=== PATIENT | female | born 1985 | race Caucasian/White ===

== ENCOUNTER 2022-05-29 09:47 | Inpatient (IN) ==
[2022-05-29] MEDS ORDERED: CARBOPROST TROMETHAMINE 250 MCG/ML AMP IM PRN (09:56)
[2022-05-29] MEDS ORDERED: ceFAZolin 3,000 MG in SYRINGE 1 EACH IV ONE (09:56)
[2022-05-29] MEDS ORDERED: TRANEXAMIC ACID 1,000 MG in SODIUM CHLORIDE 0.9% 100 ML IV PRN (09:56)
[2022-05-29] MEDS ORDERED: miSOPROStoL 200 MCG TABLET RECTAL PRN (09:56)
[2022-05-29] MEDS ORDERED: METHYLERGONOVINE 0.2 MG/1 ML AMP IM PRN (09:56)
[2022-05-29] MEDS ORDERED: OXYTOCIN/LR 20 UNIT/1,000 ML BAG IV ONE ×2 (09:56→17:12)
[2022-05-29] MEDS ORDERED: CITRIC ACID/SODIUM CITRATE 30 ML UDCUP PO ONE (09:56)
[2022-05-29] MEDS ORDERED: FAMOTIDINE 20 MG/2 ML VIAL IV ONE (09:56)
[2022-05-29] MEDS ORDERED: OXYTOCIN 10 UNIT/ML VIAL IM ONE (09:57)
[2022-05-29] MEDS ORDERED: OXYTOCIN/LR 30 UNIT/1,000 ML BAG IV ONE (09:57)
[2022-05-29] MEDS ORDERED: LACTATED RINGERS 1,000 ML IV SCH (10:00)
[2022-05-29 10:31] LABS: Basophils % 0.2 % (0.0-0.8); Eosinophils % 0.3 % (0.00-10.9); Hematocrit 32.8 VOL% (35.7-47.0); Hemoglobin 10.6 GM/DL (12.0-16.0); Immature Granulocytes % 0.7 %; Immature Granulocytes Absolute 0.08 #; Lymphocytes # 1.6 10*3/uL (1.4-4.0); Lymphocytes % 15.1 % (21.3-54.2); Mean Corpuscular HGB Conc 32.3 GM/DL (32-36); Mean Corpuscular Volume 93.4 FL (87-102); Mean Platelet Volume 9.1 FL (9.6-12.0); Monocytes # 0.8 10*3/uL (0.11-0.8); Monocytes % 7.5 % (1.7-12.7); Neutrophils % 76.2 % (38.7-73.9); Platelet Count 265 T/CUMM (130-400); Red Blood Count 3.51 MC/CUMM (3.8-5.5); Red Cell Distribution Width 12.9 % (9.3-17.3); White Blood Count 10.9 T/CUMM (4-12)
[2022-05-29] MEDS ORDERED: buprenorphine HCL 0.3 MG/ML VIAL ONE (12:24)
[2022-05-29] MEDS ORDERED: ONDANSETRON 4 MG/2 ML VIAL ONE (12:24)
[2022-05-29] MEDS ORDERED: BUPIVACAINE SPINAL 0.75% 2 ML AMP SPINAL ONE (12:24)
[2022-05-29] MEDS ORDERED: LIDOCAINE 2% 5 ML VIAL ONE (12:24)
[2022-05-29] MEDS ORDERED: CARBOPROST TROMETHAMINE 250 MCG/ML AMP IM ONE (15:16)
[2022-05-29] MEDS ORDERED: miSOPROStoL 200 MCG TABLET ONE (15:16)
[2022-05-29] MEDS ORDERED: METHYLERGONOVINE 0.2 MG/1 ML AMP ONE (15:16)
[2022-05-29] MEDS ORDERED: ACETAMINOPHEN INJ 1,000 MG/100 ML VIAL IV ONE (15:32)
[2022-05-29] MEDS ORDERED: KETOROLAC 30 MG/1 ML VIAL ONE (15:33)
[2022-05-29] MEDS ORDERED: DEXAMETHASONE 4 MG/1 ML VIAL ONE (15:34)
[2022-05-29] MEDS ORDERED: LACTATED RINGERS 1,000 ML IV ONE (16:13)
[2022-05-29] MEDS ORDERED: propofoL 200 MG/20 ML VIAL IV ONE ×3 (16:13→16:32)
[2022-05-29] MEDS ORDERED: SUCCINYLCHOLINE 200 MG/10 ML VIAL ONE (16:13)
[2022-05-29] MEDS ORDERED: fentaNYL 100 MCG/2 ML VIAL ONE (16:29)
[2022-05-29 16:32] LABS: Bilirubin,Urine Negative (Negative); Blood, Urine Negative (Negative); Glucose,Urine (UA) Negative (Negative); Ketones,Urine 20 mg/dL (Negative); Mucus,Urine Few /LPF (Occasional); Nitrite,Urine Negative (Negative); Protein,Urine Negative (Negative); RBC,Urine <1 /HPF (0-4); Squamous Epithelial Cell,Urine Occasional /HPF (0-10); Urine Appearance CLEAR (Clear); Urine Color Yellow (Yellow); Urine Specific Gravity 1.024 (1.001-1.035); Urine Urobilinogen < 2.0 eU/dL (<2.0)
[2022-05-29 16:34] LABS: Cord Venous Blood HCO3 22.6 MMOL/L; Cord Venous Blood PCO2 46.7 MMHG; Cord Venous Blood PO2 56.8
[2022-05-29] MEDS ORDERED: PHENYLEPHRINE 1 MG/10 ML SYRINGE IV ONE (16:39)
[2022-05-29] MEDS ORDERED: SEVOFLURANE 1 UNIT/15 MINUTE INH ONE (16:45)
[2022-05-29 17:06] LABS: Barbiturates Screen,Urine Negative (Negative); Benzodiazepines Screen,Urine Negative (Negative); Cannabinoid Screen,Urine Positive (Negative); Opiate Screen,Urine Negative (Negative); Phencyclidine Screen,Urine Negative (Negative)
[2022-05-29] MEDS ORDERED: HYDROmorphone 1 MG/1 ML SYRINGE IV PRN (17:11)
[2022-05-29] MEDS ORDERED: ONDANSETRON 4 MG/2 ML VIAL IV PRN ×2 (17:11→17:12)
[2022-05-29] MEDS ORDERED: diphenhydrAMINE 50 MG/1 ML VIAL IV PRN (17:11)
[2022-05-29] MEDS ORDERED: ACETAMINOPHEN 325 MG TABLET PO PRN (17:12)
[2022-05-29] MEDS ORDERED: SIMETHICONE CHEW 80 MG TABLET PO PRN (17:12)
[2022-05-29] MEDS ORDERED: RHO(D) IMMUNE GLOBULIN 300 MCG SYRINGE IM ONE (17:12)
[2022-05-29] MEDS ORDERED: KETOROLAC 30 MG/1 ML VIAL IV SCH (23:00)
[2022-05-29] MEDS ORDERED: ACETAMINOPHEN 500 MG TABLET PO SCH (23:00)
[2022-05-29] MEDS: ACETAMINOPHEN 500 MG TABLET PO SCH (23:08)
[2022-05-29] MEDS: KETOROLAC 30 MG/1 ML VIAL IV SCH (23:09)
[2022-05-30] MEDS: LACTATED RINGERS 1,000 ML IV SCH ×2 (00:38→01:43)
[2022-05-30 00:44] LABS: Basophils % 0.2 % (0.0-0.8); Hematocrit 28.6 VOL% (35.7-47.0); Hemoglobin 9.5 GM/DL (12.0-16.0); Immature Granulocytes % 0.6 %; Immature Granulocytes Absolute 0.11 #; Lymphocytes # 1.5 10*3/uL (1.4-4.0); Mean Corpuscular HGB Conc 33.2 GM/DL (32-36); Mean Platelet Volume 9.2 FL (9.6-12.0); Monocytes # 1.1 10*3/uL (0.11-0.8); Monocytes % 5.6 % (1.7-12.7); Neutrophils % 85.6 % (38.7-73.9); Platelet Count 221 T/CUMM (130-400); Red Blood Count 3.11 MC/CUMM (3.8-5.5); Red Cell Distribution Width 12.6 % (9.3-17.3); White Blood Count 19.1 T/CUMM (4-12)
[2022-05-30] MEDS: DOCUSATE SODIUM 100 MG CAPSULE PO SCH ×3 (01:50→20:28)
[2022-05-30] MEDS: ACETAMINOPHEN 500 MG TABLET PO SCH (05:45)
[2022-05-30] MEDS: KETOROLAC 30 MG/1 ML VIAL IV SCH ×2 (05:45→12:13)
[2022-05-30 07:04] LABS: Basophils % 0.3 % (0.0-0.8); Eosinophils % 0.1 % (0.00-10.9); Hemoglobin 8.9 GM/DL (12.0-16.0); Immature Granulocytes % 0.4 %; Immature Granulocytes Absolute 0.06 #; Lymphocytes # 1.8 10*3/uL (1.4-4.0); Lymphocytes % 12.2 % (21.3-54.2); Mean Corpuscular Volume 93.1 FL (87-102); Mean Platelet Volume 9.3 FL (9.6-12.0); Monocytes # 0.9 10*3/uL (0.11-0.8); Monocytes % 6.3 % (1.7-12.7); Neutrophils % 80.7 % (38.7-73.9); Platelet Count 229 T/CUMM (130-400); Red Cell Distribution Width 12.7 % (9.3-17.3); White Blood Count 14.9 T/CUMM (4-12)
[2022-05-30] MEDS: MAGNESIUM HYDROXIDE SUSP 30 ML UDCUP PO PRN ×2 (09:59→20:28)
[2022-05-30] MEDS: MULTIVITAMIN (PRENATAL) TABLET PO SCH (09:59)
[2022-05-30] MEDS: METOCLOPRAMIDE 10 MG TABLET PO SCH ×2 (10:00→20:29)
[2022-05-30] MEDS: IBUPROFEN 800 MG TABLET PO PRN (20:29)
[2022-05-31] MEDS: METOCLOPRAMIDE 10 MG TABLET PO SCH ×2 (01:21→09:18)
[2022-05-31] MEDS ORDERED: BISACODYL 10 MG SUPP RECTAL PRN (04:12)
[2022-05-31] MEDS ORDERED: WITCH HAZEL PADS 100/JAR TOP PRN (04:50)
[2022-05-31] MEDS ORDERED: DIBUCAINE 1% OINT 28 GM TUBE TOP PRN (04:51)
[2022-05-31] MEDS ORDERED: HYDROCORTISONE 2.5% RECTAL CREAM 30 GM TUBE TOP PRN (05:03)
[2022-05-31] MEDS: MULTIVITAMIN (PRENATAL) TABLET PO SCH (09:18)
[2022-05-31] MEDS: DOCUSATE SODIUM 100 MG CAPSULE PO SCH (09:18)
[2022-05-31] MEDS: IBUPROFEN 800 MG TABLET PO PRN (09:20)
[2022-05-31 16:01] VITALS: BP 143/85
== END 2022-05-31 14:00 | disposition home or self-care (01) | DRG 539 ==
LOC: N.LD 09:47 → N.OB 21:15
PROVIDERS: ADMIT Obstetrics & Gynecology; ATTEND Obstetrics & Gynecology